=== PATIENT | female | born 1990 ===

== ENCOUNTER 2020-09-12 15:11 | Emergency (ER) | payer OTHER ==
[~2020-09-12] VITALS: Ht 157.5 cm; Wt 111.9 kg
--- NOTE | 2020-09-12 15:38 | NUR ---
PATIENT WALKED BACK FROM TRIAGE WITH CHIEF C/O BODY ACHES AND FEVER. PATIENT REPORTS SHE AHD A FEVER "2 NIGHTS AGO," BUT NO FEVER SINCE. PATIENT DENIES SOB, COUGH, N/V/D. PATIENT REPORTS TESTING FOR COVID TODAY AT [facility]. [facility], CALL LIGHT WITHIN REACH.
[2020-09-12 16:31] LABS: MEAN CORPUSCULAR HGB CONC 30.2 g/dL (32.4-35.8)
[2020-09-12 16:37] LABS: ALBUMIN 3.5 g/dL (3.4-5.0); ANION GAP 7 mmol/L (5-15); CALCIUM 8.6 mg/dL (8.5-10.1); CHLORIDE 109 mmol/L (98-107); CREATININE 0.69 mg/dL (0.55-1.02); MEAN CORPUSCULAR HEMOGLOBIN 18.3 pg (27.0-34.8); MEAN PLATELET VOLUME 7.7 fL (7.4-10.4); PLATELET COUNT 381 x10^3/uL (130-400); RED CELL DISTRIBUTION WIDTH 18.5 % (9.6-15.2)
[2020-09-12 17:27] VITALS: BP 139/67
--- NOTE | 2020-09-12 17:47 | NUR ---
Patient given discharge instructions and prescription and they have confirmed that they understand the instructions. Patient stable and ambulatory with steady gait from ED to private vehicle.
[2020-09-12 18:52] LABS: MD YES
[2020-09-12 18:56] LABS: BAND#(MANUAL) 0.06 x10^3/uL; BANDS%(MANUAL) 1 % (0-7); EOS#(MANUAL) 0.17 x10^3/uL (0.0-0.4); EOS% (MANUAL) 3 % (1-7); LYMPH#(MANUAL) 1.49 x10^3/uL (1-3.4); LYMPHS% (MANUAL) 27 % (22-44); MONOS#(MANUAL) 0.22 x10^3/uL (0.3-2.7); MONOS% (MANUAL) 4 % (2-9); SEG#(MANUAL) 3.58 x10^3/uL (1.8-6.8); SEGS% (MANUAL) 65 % (42-75)
[2020-09-12 18:57] LABS: ANISOCYTOSIS 2+; HYPOCHROMIA 2+; MICROCYTOSIS 2+
[2020-09-12 18:59] LABS: <PLATELET ESTIMATE> ADEQUATE; OVALOCYTES 2+; POLYCHROMASIA 1+
[2020-09-12 19:00] LABS: <PLT MORPHOLOGY> NORMAL PLT MORPH
== END 2020-09-12 18:03 | disposition home or self-care (01) ==
LOC: ED 17:58
DX: D50.9 Iron deficiency anemia, unspecified (principal); J06.9 Acute upper respiratory infection, unspecified; R50.9 Fever, unspecified; M79.10 Myalgia, unspecified site; R09.81 Nasal congestion
CPT/HCPCS: 36415; 80048; 82040; 84703; 85025; 99283

== ENCOUNTER 2021-04-09 14:05 | Emergency (ER) | payer OTHER ==
[~2021-04-09] VITALS: Ht 157.5 cm; Wt 114.1 kg
[2021-04-09] MEDS ORDERED: DEXAMETHASONE 4 MG/ML, 1ML PO ONE (15:00)
[2021-04-09] MEDS ORDERED: DEXAMETHASONE 4 MG/ML, 1ML ONE (19:18)
[2021-04-09 19:22] VITALS: BP 128/84
--- NOTE | 2021-04-09 19:36 | NUR ---
PT MEDICATED PER MAR
== END 2021-04-09 20:14 | disposition home or self-care (01) ==
LOC: ED 20:05
DX: B34.9 Viral infection, unspecified (principal); Z20.822 Contact with and (suspected) exposure to COVID-19; R06.02 Shortness of breath
CPT/HCPCS: 71045; 99284; J1100; U0003; U0005